=== PATIENT | male | born 1995 | race Caucasian/White ===

== ENCOUNTER 2018-04-25 21:46 | Emergency (ER) | payer MEDICAID ==
[~2018-04-25] VITALS: Ht 180.3 cm; Wt 77.6 kg
[2018-04-25 21:54] VITALS: Ht 180.3 cm; Wt 77.6 kg
[2018-04-25 22:41] LABS: CALCIUM 9.6 mg/dL (8.5-10.1); CARBON DIOXIDE 31.7 mmol/L (21-32); CHLORIDE SERUM 98 mmol/L (98-107); CREATININE SERUM 1.1 mg/dL (0.7-1.3); GFR1 > 60 mL/min; GLUCOSE SERUM 101 mg/dL (74-106); POTASSIUM SERUM 4.3 mmol/L (3.5-5.1); SODIUM SERUM 136 mmol/L (136-145)
[2018-04-25 22:54] LABS: PLATELET COUNT 317 x10^3mcL (130-400); RED CELL DISTRIBUTION WIDTH 12.9 % (11.5-14.5)
[2018-04-25 23:38] LABS: BAND NEUTROPHIL 2 % (0-10); MONOCYTE 11 % (0-7); SEGMENTED NEUTROPHILS 77 % (37-75)
[2018-04-25 23:40] LABS: rbc morphology (normal/abnorm) NORMAL (NORMAL)
[2018-04-25 23:43] LABS: PLATELET MORPHOLOGY FEW LARGE PLATELETS
[2018-04-26 01:22] VITALS: BP 118/56
== END 2018-04-26 01:22 | disposition home or self-care (01) ==
LOC: ED 21:46
PROVIDERS: Emergency Medicine
DX: L03.116 Cellulitis of left lower limb (principal)
CPT/HCPCS: J2001; J2270; J7030

== ENCOUNTER 2018-04-28 12:53 | Emergency (ER) | payer MEDICAID ==
[~2018-04-28] VITALS: Ht 180.3 cm; Wt 79.8 kg
[2018-04-28 13:19] VITALS: BP 139/72; Ht 180.3 cm; Wt 79.8 kg
== END 2018-04-28 15:26 | disposition home or self-care (01) ==
LOC: ED 12:53
DX: L02.416 Cutaneous abscess of left lower limb (principal)

== ENCOUNTER 2018-07-24 15:18 | Emergency (ER) | payer MEDICAID ==
[~2018-07-24] VITALS: Ht 180.3 cm; Wt 84.4 kg
[2018-07-24 15:22] VITALS: BP 132/81; Ht 180.3 cm; Wt 84.4 kg
== END 2018-07-24 16:42 | disposition home or self-care (01) ==
LOC: ED 15:18
DX: H10.89 Other conjunctivitis (principal); F17.210 Nicotine dependence, cigarettes, uncomplicated